=== PATIENT | male | born 1970 | race Caucasian/White ===

== ENCOUNTER 2019-05-27 07:33 | Outpatient (CLI) | payer BC, SELFPAY ==
[2019-05-27 09:11] LABS: Anion Gap 7.2 mmol/L (3-11); BUN 13 mg/dL (7-18); CO2 29.8 mmol/L (21.0-32.0); CREATININE 1.16 mg/dL (0.70-1.30); Calculated LDL 180 mg/dL; Chloride 104 mmol/L (98-107); Cholesterol 260 mg/dL (50-200); Glucose 108 mg/dL (70-100); HDL Cholesterol 35 mg/dL (40-60); Potassium 4.9 mmol/L (3.5-5.1); Sodium 141 mmol/L (136-145); Triglyceride 229 mg/dL (30-150)
== END 2019-05-27 07:53 ==
PROVIDERS: PCP Internal Medicine; Visit Provider Internal Medicine
DX: I10 Essential (primary) hypertension (principal); Z13.220 Encounter for screening for lipoid disorders
CPT/HCPCS: 36415; 80048; 80061

== ENCOUNTER 2019-11-10 07:20 | Outpatient (CLI) | payer BC, SELFPAY ==
[2019-11-10 08:21] LABS: Hemoglobin A1C 5.6 % (3.8-5.6)
[2019-11-10 08:42] LABS: Calculated LDL 159 mg/dL (<100); Cholesterol 222 mg/dL (<200); Glucose 112 mg/dL (74-106); HDL Cholesterol 48 mg/dL (40-60); Triglyceride 76 mg/dL (<150)
== END 2019-11-10 07:40 ==
PROVIDERS: PCP Internal Medicine; Visit Provider Internal Medicine
DX: E78.5 Hyperlipidemia, unspecified (principal); I10 Essential (primary) hypertension; R73.9 Hyperglycemia, unspecified
CPT/HCPCS: 36415; 80061; 82947; 83036

== ENCOUNTER 2020-05-23 04:26 | Emergency (ER) | payer BC, SELFPAY ==
[2020-05-23] VITALS (26 sets, daily range): BP systolic 114–142; BP diastolic 66–114; PULSE 77–107; RESP 13–22; TEMP 37; O2SAT 95–99
--- NOTE | 2020-05-23 04:15 | RT.EKG_ITS ---
APPROVED REPORT Exam: Resting ECG Patient Location: E HR:104 bpm ECG Measurements Heart Rate 104 AXIS MO 200 P 55 QRSd 89 QRS 52 QT 337 T 7 QTc 443 Conclusion EKG 4: 31 Sinus rhythm rate [address] elevations or depressions, intervals normal, no evidence of [facility] JENNIFER, large Q waves, or other significant abnormalities.
--- NOTE | 2020-05-23 04:30 | DI.RAD_ITS ---
EXAM: XR CHEST 2V PA LATERAL CLINICAL HISTORY: central chest pain TECHNIQUE: 2D digital imaging was performed. COMPARISON: No exams were available for comparison FINDINGS: Heart size is normal. There is mild right-sided pleural scarring. There are emphysematous changes a t the lung apices. No infiltrate, effusion or pulmonary edema is seen. IMPRESSION: Mild right pleural thickening. Apical emphysematous changes.
--- NOTE | 2020-05-23 04:42 | W.ED.GENAD ---
Discharge Plan Disposition Patient Disposition: HOME Condition: Good Discharge Details Clinical Impression: Chest pain, Muscular chest pain Primary Care Provider: Columba Moore ED Provider: Pual Anderson Home Meds and New Rx's Prescriptions: Continued amlodipine [Norvasc] 5 mg Tablet 5 mg PO DAILY RF: 0 lisinopril 40 mg Tablet 40 mg PO DAILY RF: 0 omeprazole 40 mg Capsule,Delayed Release(Dr/Ec) 40 mg PO DAILY RF: 0 Discharge Instructions Instructions: Chest Pain (ED) Additional Instructions: At this time your symptoms appear to be associated with a muscular strain, however that being said with your risk factors and your history it is important to have further testing like a stress test on an outpatient basis. Please discuss this with your family doctor this week. If you notice any worsening of your symptoms, or any new symptoms such as vomiting, diarrhea, fever, chills, shortness of breath, chest pain, numbness, weakness, or fainting , please return immediately to the emergency department for reevaluation. Please follow up with your primary care provider as soon as possible for reassessment and reevaluation. As always, it was a pleasure participating in your medical care today. Referrals: Columba Moore [Primary Care Provider] - Medical Decision Making <Sameer Rosario DO - Last Filed: 05/23/20 07:57> 50-year-old male with a past medical history of hypertension, previous obesity which she is aggressively combating with exercise and weight loss, strong family history of cardiac disease, no history of tobacco abuse, who presents today for evaluation of chest pain. Patient states that 24 hours ago at 3 AM he awoke with what he describes as chest pressure in the center of his chest like someone pushed/punched him. He denies any trauma though. Throughout the day pain was slightly worsened with activity, but was mainly improved with Advil and not rest. This evening the pain was essentially gone, however when the patient woke up again at 3 AM tonight he again had identical pain. No radiation of the pain to his arm neck or shoulders. No tearing or ripping sensation. No pleuritic chest pain. Denies PE risk factors such as recent long car rides, immobilization, recent surgery, prior history of DVT or PE, family history of PE or DVT, morbid obesity, exogenous estrogen and smoking, hemoptysis, history of cancer. He does admit to regular aggressive chest workouts, and feels that there may be a musculoskeletal component. No other complaints at this time. No other modifying factors. Exam is unremarkable. Based on the patient's risk factors, history, symptomatology will perform cardiac work-up, with the patient's mild tachycardia we will get d-dimer also. Gently rehydrate, give full dose aspirin nitroglycerin monitor closely and reassess. I did contact his and discussed all of this with her over the phone as well. 7:54 AM Chest x-ray negative, d-dimer negative, proBNP negative, no suggestion of right heart strain or CHF. Initial troponin is normal. Repeat and initial EKG are benign. Patient had no relief of his symptoms with nitroglycerin, Toradol was given an hour later and the patient had complete resolution of his symptoms. Signs and symptoms appear inconsistent with ACS and more consistent with musculoskeletal strain, intercostal pain. And costochondritis. The patient does admit to a notable heavy chest workout over the last few days. This is likely an aggravating factor. We are still pending repeat troponin at this time, but with his heart score into the 0-3 range I feel that with a negative delta troponin and his notably musculoskeletal symptoms he can be discharged with close follow-up. I did discuss with him the importance of follow-up with his PCP as well as potential stress testing on an outpatient basis. The case was signed out to my colleague Dr. Paul Anderson for follow-up on repeat troponin. I did contact the patient's and discussed this with her as well. EKG 4: 31 Sinus rhythm rate [address] elevations or depressions, intervals normal, no evidence of STEMI, large Q waves, or other significant abnormalities. Small Q wave in lead III. EKG 7: 39 Sinus rhythm, rate 81, intervals normal, no significant ST elevation or depression. No evidence of STEMI. Small Q wave in lead III. FINDINGS: Lungs: Unremarkable. No consolidation. Pleural space: Subtle blunting noted right CP angle which is nonspecific Heart/Mediastinum: Unremarkable. No cardiomegaly. Bones/joints: Unremarkable. IMPRESSION: No acute findings Thank you for allowing us to participate in the care of your patient. Dictated and Authenticated by: Chepe Nelson MD 05/23/2020 5:37 AM Eastern Time ([place] & [place]) <Paul Anderson MD - Last Filed: 05/23/20 08:23> Received signout from Dr. Rosario. Please see his note regarding details of the history, presentation, exam, plan of care. Shortly after Dr. Rosario's departure, patient's troponin resulted negative. He remained improved. He was discharged home with follow-up as previously noted. Lab Data Lab results reviewed: Yes I reviewed the patient's lab results. Labs: Laboratory Results - last 24 hr 05/23/20 05/23/20 05/23/20 04:40 04:40 04:40 WBC 9.93 RBC 4.73 Hgb 14.3 Hct 42.5 MCV 89.9 MCH 30.2 MCHC 33.6 RDW 12.6 Plt Count 235 MPV 9.5 Immature Gran % 0.1 Neutrophils % 69.3 Lymphocytes % 19.4 Monocytes % 8.3 Eosinophils % 2.4 Basophils % 0.5 Nucleated RBC % 0 Absolute Neutrophils 6.88 H Absolute Lymphocytes 1.93 Absolute Monocytes 0.82 H Absolute Eosinophils 0.24 Absolute Basophils 0.05 PT 10.3 INR 1.0 APTT 26.3 D-Dimer 271 Sodium 139 Potassium 3.9 Chloride 105 Carbon Dioxide 26.3 Anion Gap 7.7 BUN 22 H Creatinine 1.22 Estimated GFR/1.73 m2 >= 60.00 Glucose 125 H Calcium 8.7 Total Bilirubin 0.5 AST 20 ALT 42 Alkaline Phosphatase 80 Troponin I < 0.05 NT-Pro-B Natriuret Pep 57 Total Protein 7.2 Albumin 3.8 Lipase 90 05/23/20 07:40 WBC RBC Hgb Hct MCV MCH MCHC RDW Plt Count MPV Immature Gran % Neutrophils % Lymphocytes % Monocytes % Eosinophils % Basophils % Nucleated RBC % Absolute Neutrophils Absolute Lymphocytes Absolute Monocytes Absolute Eosinophils Absolute Basophils PT INR APTT D-Dimer Sodium Potassium Chloride Carbon Dioxide Anion Gap BUN Creatinine Estimated GFR/1.73 m2 Glucose Calcium Total Bilirubin AST ALT Alkaline Phosphatase Troponin I < 0.05 NT-Pro-B Natriuret Pep Total Protein Albumin Lipase HPI <Sameer Rosario DO - Last Filed: 05/23/20 07:57> General Date/Time Provider Initiated Documentation: 05/23/20 04:27. HPI Narrative: 50-year-old male with a past medical history of hypertension, previous obesity which she is aggressively combating with exercise and weight loss, strong family history of cardiac disease, no history of tobacco abuse, who presents today for evaluation of chest pain. Patient states that 24 hours ago at 3 AM he awoke with what he describes as chest pressure in the center of his chest like someone pushed/punched him. He denies any trauma though. Throughout the day pain was slightly worsened with activity, but was mainly improved with Advil and not rest. This evening the pain was essentially gone, however when the patient woke up again at 3 AM tonight he again had identical pain. No radiation of the pain to his arm neck or shoulders. No tearing or ripping sensation. No pleuritic chest pain. Denies PE risk factors such as recent long car rides, immobilization, recent surgery, prior history of DVT or PE, family history of PE or DVT, morbid obesity, exogenous estrogen and smoking, hemoptysis, history of cancer. He does admit to regular aggressive chest workouts, and feels that there may be a musculoskeletal component. No other complaints at this time. No other modifying factors. Related Data Home Medications Medication Instructions Recorded Confirmed amlodipine [Norvasc] 5 mg PO DAILY 05/23/20 05/23/20 lisinopril 40 mg PO DAILY 05/23/20 05/23/20 omeprazole 40 mg PO DAILY 05/23/20 05/23/20 Allergies Allergy/AdvReac Type Severity Reaction Status Date / Time No Known Allergies Allergy Unverified 05/23/20 05:05 Review of Systems <Sameer Rosario DO - Last Filed: 05/23/20 07:57> All systems reviewed & are unremarkable except as noted in HPI and below PFSH <Sameer Rosario DO - Last Filed: 05/23/20 07:57> Social History Smoking/Tobacco Use Status: Never Alcohol Intake: never Drug use: Never Substance use type: does not use Do you feel safe at home: Yes Do you feel safe in your relationship?: Yes Exam <Sameer Rosario DO - Last Filed: 05/23/20 07:57> Narrative Exam Narrative: 1.Const: Well-nourished, Well-developed, appearing stated age 2.Eyes: PERRL, no conjunctival injection, and symmetrical lids. 3.ENT: Atraumatic external nose and ears. Moist MM. Neck: Symmetric, trachea midline, No thyromegaly. 4.CVS: +S1/S2, No murmurs or gallops. Peripheral pulses 2+ and equal in all extremities. Brisk capillary refill in all extremities. Mild reproducibility on palpation of the lower sternum. No other abnormalities on exam 5.RESP: Unlabored respiratory effort. Clear to auscultation bilaterally. No wheezes rales or rhonchi 6.GI: Soft, Nontender/Nondistended, No hepatosplenomegaly. No guarding or rebound. 7.MSK: Normocephalic/Atraumatic, Extremities w/o deformity or ttp No cyanosis or clubbing, Normal movement of all extremities 8.Skin: Warm, Dry. No rashes or lesions. 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 Sensation grossly intact, no focal neurologic deficits. 10.Psych: (AAO) x3. Appropriate mood and affect Sign Out <Sameer Rosario DO - Last Filed: 05/23/20 07:57> Sign Out Data: Sign Out Comment: Pending repeat troponin Last updated by Sameer Rosario DO at 05/23/20 07:58
[2020-05-23 04:48] LABS: Abs Immature Grans 0.01 10^3/uL (0.0-0.06); Absolute Basophil Count 0.05 10^3/uL (0.0-0.2); Absolute Eosinophil Count 0.24 10^3/uL (0.0-0.7); Absolute Lymphocyte Count 1.93 10^3/uL (1.2-3.4); Absolute Monocyte Count 0.82 10^3/uL (0.1-0.8); Absolute Neutrophil Count 6.88 10^3/uL (1.2-6.7); Basophils % 0.5; Eosinophils % 2.4; HCT 42.5 % (40.0-50.0); HGB 14.3 g/dL (13.5-17.5); Immature Grans % 0.1; Lymphocytes % 19.4; MCH 30.2 pg (27.0-33.0); MCHC 33.6 % (32.0-36.0); MCV 89.9 fL (80-95); MPV 9.5 fL (8.0-11.0); Monocytes % 8.3; Neutrophils % 69.3; Nucleated RBC 0 %; Platelet Count 235 10^3/uL (130-400); RBC 4.73 10^6/uL (4.36-5.78); RDW 12.6 % (11.8-14.1); RDW-SD 41.7 fL; WBC 9.93 10^3/uL (4.4-10.8)
[2020-05-23] MEDS: Aspirin 81 MG CHEW 324 MG CH (04:49)
[2020-05-23] MEDS: Normal Saline 1,000 ML 1000 ML IV (04:59)
[2020-05-23] MEDS: nitroGLYcerin 0.4 MG TAB SL (04:59)
[2020-05-23 05:03] LABS: PTT Activated 26.3 sec (21.0-31.4); Prothrombin Time 10.3 sec (9.3-11.0)
[2020-05-23 05:21] LABS: D-Dimer 271 ng/mlFEU (<500)
[2020-05-23 05:22] LABS: ALT 42 U/L (16-63); AST 20 U/L (15-37); Albumin 3.8 g/dL (3.4-5.0); Alkaline Phosphatase 80 U/L (46-116); Anion Gap 7.7 mmol/L (3-11); BUN 22 mg/dL (7-18); Bilirubin, Total 0.5 mg/dL (0.2-1.0); CO2 26.3 mmol/L (21.0-32.0); CREATININE 1.22 mg/dL (0.70-1.30); Calcium 8.7 mg/dL (8.5-10.1); Chloride 105 mmol/L (98-107); Glucose 125 mg/dL (74-106); Lipase 90 U/L (73-393); NT-proBNP 57 pg/mL (<300); Potassium 3.9 mmol/L (3.5-5.1); Sodium 139 mmol/L (136-145); Total Protein 7.2 g/dL (6.4-8.2); Troponin I < 0.05 ng/mL (<0.06)
--- NOTE | 2020-05-23 05:37 | DI.VRAD_ITS ---
PROCEDURE INFORMATION: Exam: XR Chest, 2 Views Exam date and time: 05/23/2020 4:39 AM Age: 50 years old Clinical indication: Patient HX: Central chest pain TECHNIQUE: Imaging protocol: XR of the chest Views: 2 views. COMPARISON: No relevant prior studies available. FINDINGS: Lungs: Unremarkable. No consolidation. Pleural space: Subtle blunting noted right CP angle which is nonspecific Heart/Mediastinum: Unremarkable. No cardiomegaly. Bones/joints: Unremarkable. IMPRESSION: No acute findings Dictated and Authenticated by: Chepe Nelson MD. Ordering:JOSE L Estrella MD
[2020-05-23] MEDS: Ketorolac 30 MG/ML VIAL IVP (06:00)
--- NOTE | 2020-05-23 06:24 | NUR.NOTE ---
Nursing Note: Patient aware of POC, will recheck Troponin at 0740
--- NOTE | 2020-05-23 07:00 | RT.EKG_ITS ---
APPROVED REPORT Exam: Resting ECG Patient Location: E HR:81 bpm ECG Measurements Heart Rate 81 AXIS DC 174 P 45 QRSd 85 QRS 40 QT 356 T 24 QTc 415 Conclusion EKG 7: 39 Sinus rhythm, rate 81, intervals normal, no significant ST elevation or depression. No evidence of S CHILO. Small Q wave in lead III.
[2020-05-23 08:06] LABS: Troponin I < 0.05 ng/mL (<0.06)
== END 2020-05-23 08:33 | disposition home or self-care (01) ==
PROVIDERS: Student in an Organized Health Care Education/Training Program; Emergency Provider Emergency Medicine; PCP Internal Medicine
DX: R07.81 Pleurodynia (principal); S29.011A Strain of muscle and tendon of front wall of thorax, initial encounter; I10 Essential (primary) hypertension
CPT/HCPCS: 36415; 80053; 83690; 93005; 96361; 96374; 99285; 71046; 83880; 84484; 85025; 85379; 85610; 85730; 93010; 99284; J1885

== ENCOUNTER 2020-10-01 14:58 | Emergency (ER) | payer BC, SELFPAY ==
[2020-10-01 15:02] VITALS: BP 168/87; PULSE 90; RESP 18; TEMP 36.7; O2SAT 99
--- NOTE | 2020-10-01 15:15 | DI.CT_ITS ---
EXAM: CT ABDOMEN PELVIS W CLINICAL HISTORY: abdominal pain, rectal bleeding TECHNIQUE: Imaging Protocol: Axial computed tomography images with coronal and sagittal reformatted images were created and reviewed CONTRAST MATERIAL: Intravenous: Omnipaque 350 Contrast volume:99 mL Oral: No COMPARISON: CR,XR XR CHEST 2V PA LATERAL from 05/23/2020 FINDINGS: ABDOMEN: Lung Bases: There is a small right pleural effusion. This is apparent on this chest x-ray from 2020. Atelectasis is seen in the lung bases. There is a small no hernia. Liver: Normal density. No measurable mass. Portal, Superior Mesenteric, and Splenic Veins: Unremarkable. Gallbladder and Biliary Tract: No radiodense calculus or dilation. Pancreas: Normal density, no abnormal calcifications or inflammatory process. Spleen: Normal. Adrenals: No masses seen. Kidneys: Normal size, contour and axis. No radiodense stones or obstructive uropathy. No masses seen. Abdominal Aorta: Abdominal portion non-dilated. Mild atherosclerosis. Bowel: No evidence of obstruction. There is diffuse bowel wall thickening seen in the distal transve rse colon and descending colon. Pericolonic inflammatory changes are seen. Findings are suspicious for an infectious or inflammatory colitis. No evidence of diverticulosis is seen. Appendix is unrem arkable. No abscess or free air. Peritoneal Cavity: No ascites, collection or mesenteric inflammatory response. No free air. Lymph Nodes: Within normal limits. Bones: Within normal limits for the patient's age. Soft Tissues: Bilateral fat containing umbilical hernia. PELVIS: Bladder: Symmetric distention, no gross wall thickening. Reproductive Organs: Unremarkable as visualized. Lymph Nodes: Within normal limits. Bones: Within normal limits for the patient's age. IMPRESSION: Descending colitis. Findings are suspicious for an infectious/inflammatory etiology. No abscess or free air. Findings were discussed with the emergency department on the date of the examination. RADIATION DOSE DELIVERED: 969.24mGy.cm Total DLP DATA REPOSITORY: All CT scans at this facility are submitted to the National Radiology Data Registry (NRDR) Dose Index Registry (DIR) with the [employer] (A[employer]). RADIATION OPTIMIZATION: All CT scans at this facility use at least one of these dose optimization te chniques: automated exposure control; mA and/or kV adjustment per patient size (includes targeted exa ms where dose is matched to clinical indication); or iterative reconstruction.
--- NOTE | 2020-10-01 15:17 | ED.GENADUL_ITS ---
Discharge Plan Disposition Patient Disposition: HOME Condition: Stable Discharge Details Clinical Impression: Colitis Primary Care Provider: Columba Moore ED Provider: Venkata Chandra Home Meds and New Rx's Prescriptions: New amoxicillin-pot clavulanate [Augmentin] 875-125 mg tablet 1 tab PO BID Qty: 14 RF: 0 Continued amlodipine [Norvasc] 5 mg Tablet 5 mg PO DAILY RF: 0 lisinopril 40 mg Tablet 40 mg PO DAILY RF: 0 omeprazole 40 mg Capsule,Delayed Release(Dr/Ec) 40 mg PO DAILY RF: 0 Discharge Instructions Instructions: Colitis (ED) Additional Instructions: your cat scan showed you have colitis if you have severe worsening pain, feel short of breath or chest pain return to the emergency department follow up with your primary care provider within a week Medical Decision Making 50 yo male with hx of htn, who comes in with complaint of blood in stools an hour ago. He states he has had some lower abdominal cramping for a day left worse than the right, no vomit or fevers. Had a BM an hour ago that had blood in it which has never happened to him before. Has not had his colonoscopy yet. He arrives in no distress with mild llq tenderness no guarding or rebound. HAs a small nonbleeding hemorrhoid about 0.5cm external to the rectum at the 3 oclock position and no active bleeding on rectal exam or other masses. Will order cbc, and evaluate for possible colitis vs diverticulitis with ct. pt stable and has no bleeding here only mild lower abdominal tenderness no guarding or rebound. Labs unremarkable, ct shows colitis, no free air or abscess. Will start on augmentin and have him f/u with pcp and discuss colonoscopy with them, return precautions given Differential Diagnosis Differential Diagnosis: diverticulitis, hemorrhoid, colitis Imaging Data Radiologic Study: Attestation: I personally reviewed and interpreted this imaging study as follows: Imaging: CT Scan Radiologist's impression: IMPRESSION: Descending colitis. Findings are suspicious for an infectious/inflammatory etiology. No abscess or free air. Lab Data Lab results reviewed: Yes I reviewed the patient's lab results. HPI General Mode of arrival: ambulatory . Date/Time Provider Initiated Documentation: 10/01/20 15:00 . Limitations to Documentation: no limitations . Information obtained by: patient . History of Present Illness 50 year old M presents to the emergency department with the chief complaint of blood in stool, Patient started experiencing this hour(s) (1) and it has been intermittent. No relieving factors improve symptom(s), No exacerbating factors reported . Patient notes no other symptoms.. Patient did receive the following treatments prior to arrival, none Related Data Home Medications Medication Instructions Recorded Confirmed amlodipine [Norvasc] 5 mg PO DAILY 05/23/20 10/01/20 lisinopril 40 mg PO DAILY 05/23/20 10/01/20 omeprazole 40 mg PO DAILY 05/23/20 10/01/20 amoxicillin-pot clavulanate 1 tab PO BID #14 tab 10/01/20 [Augmentin] Previous Rx's Medication Instructions Recorded amoxicillin-pot clavulanate 1 tab PO BID #14 tab 10/01/20 [Augmentin] Allergies Allergy/AdvReac Type Severity Reaction Status Date / Time No Known Allergies Allergy Unverified 10/01/20 15:07 General Stated Complaint: Abd Prob JOHNNY: 3 Review of Systems All systems reviewed & are unremarkable except as noted in HPI and below Constitutional Constitutional: Denies chills, Denies fever(s) and Denies weakness Cardiovascular Cardiovascular: Denies chest pain and Denies dyspnea Respiratory Respiratory: Denies cough and Denies dyspnea Gastrointestinal Gastrointestinal: Denies nausea and Denies vomiting Musculoskeletal Musculoskeletal: Denies joint swelling Neurologic Neurologic: Denies weakness Psychiatric Psychiatric: Denies depression [facility] Social History Smoking/Tobacco Use Status: Never Smoking risk assessment performed?: Yes Alcohol Intake: never Drug use: Never Substance use type: does not use Do you feel safe at home: Yes Do you feel safe in your relationship?: Yes Exam Const General: no acute distress Orientation: alert HENMT Head: normal to inspection Ears: external ears normal General nose exam: external nose normal Mouth: moist mucous membranes Eyes General: appearance normal, both eyes and all related structures Neck Neck: normal visual inspection Resp Effort & Inspection: normal respiratory effort and able to speak in complete sentences Cardio Rate: regular rate GI Palpation: soft Skin General skin exam: no rashes or lesions noted Neuro General: patient alert and patient oriented x3 Extrem General: normal to inspection Psych Mental Status: mental status grossly normal Course Vital Signs Vital signs: Vital Signs Temperature 36.7 C 10/01/20 15:02 Pulse 90 10/01/20 15:02 Respiratory Rate 18 10/01/20 15:02 Blood Pressure 168/87 H 10/01/20 15:02 Pulse Oximetry 99 10/01/20 15:02 Temperature 36.7 C 10/01/20 15:02 Temperature Source Temporal Artery Scan 10/01/20 15:02 Pulse 90 10/01/20 15:02 Respiratory Rate 18 10/01/20 15:02 Respiratory Effort Non-Labored 10/01/20 15:08 Blood Pressure 168/87 H 10/01/20 15:02 Blood Pressure Position Supine 10/01/20 15:02 Pulse Oximetry 99 10/01/20 15:02 Oxygen Delivery Method Room Air 10/01/20 15:02 Oxygen Flow Rate 0 10/01/20 15:02 Pain Level 2 10/01/20 15:02
[2020-10-01 15:37] LABS: Abs Immature Grans 0.02 10^3/uL (0.0-0.06); Absolute Basophil Count 0.04 10^3/uL (0.0-0.2); Absolute Eosinophil Count 0.16 10^3/uL (0.0-0.7); Absolute Lymphocyte Count 2.16 10^3/uL (1.2-3.4); Absolute Monocyte Count 0.57 10^3/uL (0.1-0.8); Absolute Neutrophil Count 6.52 10^3/uL (1.2-6.7); Basophils % 0.4; Eosinophils % 1.7; HCT 43.2 % (40.0-50.0); HGB 14.5 g/dL (13.5-17.5); Immature Grans % 0.2; Lymphocytes % 22.8; MCH 29.7 pg (27.0-33.0); MCHC 33.6 % (32.0-36.0); MCV 88.5 fL (80-95); MPV 9.6 fL (8.0-11.0); Neutrophils % 68.9; Nucleated RBC 0 %; Platelet Count 254 10^3/uL (130-400); RBC 4.88 10^6/uL (4.36-5.78); RDW 12.6 % (11.8-14.1); RDW-SD 41.2 fL; WBC 9.47 10^3/uL (4.4-10.8)
[2020-10-01] MEDS: Normal Saline - Diluent 50 ML VIAL IV (15:38)
[2020-10-01] MEDS: Omnipaque 350 MG/ML 100 ML BTL IJ (15:38)
[2020-10-01] MEDS: Normal Saline Flush 10 ML SYR IVP (15:38)
[2020-10-01 15:53] LABS: INR 1.1 (0.9-1.1); Prothrombin Time 10.8 sec (9.3-11.0)
[2020-10-01 16:04] LABS: ALT 43 U/L (16-63); AST 20 U/L (15-37); Alkaline Phosphatase 77 U/L (46-116); Anion Gap 9.7 mmol/L (3-11); BUN 16 mg/dL (7-18); Bilirubin, Direct 0.07 mg/dL (0.00-0.20); Bilirubin, Total 0.5 mg/dL (0.2-1.0); CO2 27.3 mmol/L (21.0-32.0); CREATININE 1.1 mg/dL (0.70-1.30); Calcium 8.2 mg/dL (8.5-10.1); Chloride 104 mmol/L (98-107); Glucose 123 mg/dL (74-106); Lipase 130 U/L (73-393); Potassium 3.5 mmol/L (3.5-5.1); Sodium 141 mmol/L (136-145); Total Protein 7.5 g/dL (6.4-8.2)
[2020-10-01 16:17] VITALS: BP 142/87; PULSE 79; O2SAT 100
== END 2020-10-01 16:45 | disposition home or self-care (01) ==
PROVIDERS: Emergency Provider Emergency Medicine; PCP Internal Medicine
DX: K52.89 Other specified noninfective gastroenteritis and colitis (principal); R10.32 Left lower quadrant pain
CPT/HCPCS: 36415; 80053; 83690; 86850; 86900; 86901; 99285; 74177; 82248; 85025; 85610; 85730; 99284; J3490

== ENCOUNTER 2020-11-03 09:10 | Outpatient (REF) | payer BC, SELFPAY ==
[2020-11-03 13:12] LABS: Hemoglobin A1C 5.4 % (<5.7)
[2020-11-03 13:20] LABS: Anion Gap 7.4 mmol/L (3-11); BUN 28 mg/dL (7-18); CO2 28.6 mmol/L (21.0-32.0); CREATININE 1.1 mg/dL (0.70-1.30); Calcium 9.2 mg/dL (8.5-10.1); Calculated LDL 184 mg/dL (<100); Chloride 102 mmol/L (98-107); Cholesterol 255 mg/dL (<200); Glucose 102 mg/dL (74-106); HDL Cholesterol 58 mg/dL (40-60); Potassium 4.5 mmol/L (3.5-5.1); Sodium 138 mmol/L (136-145); Triglyceride 69 mg/dL (<150)
== END 2020-11-03 09:11 | disposition home or self-care (01) ==
LOC: NCHCN 09:10
PROVIDERS: PCP Internal Medicine; Visit Provider Internal Medicine
DX: R73.03 Prediabetes (principal); I10 Essential (primary) hypertension; E78.5 Hyperlipidemia, unspecified
CPT/HCPCS: 80048; 80061; 83036

== ENCOUNTER 2021-12-07 08:04 | Outpatient (REF) | payer BC, SELFPAY ==
[2021-12-07 17:16] LABS: Hemoglobin A1C 5.6 % (<5.7)
[2021-12-07 17:22] LABS: ALT 33 U/L (16-63); AST 18 U/L (15-37); Albumin 3.8 g/dL (3.4-5.0); Alkaline Phosphatase 80 U/L (46-116); Anion Gap 6.6 mmol/L (3-11); BUN 24 mg/dL (7-18); Bilirubin, Total 0.3 mg/dL (0.2-1.0); CO2 29.4 mmol/L (21.0-32.0); CREATININE 1.1 mg/dL (0.70-1.30); Calcium 8.4 mg/dL (8.5-10.1); Calculated LDL 161 mg/dL (<100); Chloride 106 mmol/L (98-107); Cholesterol 230 mg/dL (<200); Glucose 109 mg/dL (74-106); HDL Cholesterol 60 mg/dL (40-60); Potassium 3.9 mmol/L (3.5-5.1); Sodium 142 mmol/L (136-145); Total Protein 6.7 g/dL (6.4-8.2); Triglyceride 49 mg/dL (<150)
== END 2021-12-07 08:05 | disposition home or self-care (01) ==
LOC: NCHCN 08:04
PROVIDERS: PCP Internal Medicine; Visit Provider Internal Medicine
DX: Z00.00 Encounter for general adult medical examination without abnormal findings (principal); E78.5 Hyperlipidemia, unspecified; R73.03 Prediabetes; I10 Essential (primary) hypertension
CPT/HCPCS: 80053; 80061; 83036

== ENCOUNTER 2022-05-22 15:08 | Outpatient (REF) | payer BC, SELFPAY ==
[2022-05-24 12:07] LABS: COVID-19 RT-PCR UVMMC Result Negative (Negative)
== END 2022-05-22 15:09 | disposition home or self-care (01) ==
LOC: LBN 15:08
PROVIDERS: PCP Internal Medicine; Visit Provider Nurse Practitioner Family
DX: Z20.822 Contact with and (suspected) exposure to COVID-19 (principal); J06.9 Acute upper respiratory infection, unspecified
CPT/HCPCS: U0003

== ENCOUNTER 2023-06-08 18:45 | Outpatient (REF) | payer BC, SELFPAY ==
[2023-06-08 15:31] LABS: Hemoglobin A1C 5.6 % (<5.7)
[2023-06-08 16:09] LABS: Anion Gap 8.9 mmol/L (3-11); BUN 29 mg/dL (7-18); CO2 25.1 mmol/L (21.0-32.0); CREATININE 1.1 mg/dL (0.70-1.30); Calcium 9.1 mg/dL (8.5-10.1); Calculated LDL 150 mg/dL (<100); Chloride 104 mmol/L (98-107); Cholesterol 215 mg/dL (<200); Estimated GFR 80.27 (mL/min/1.73m2); Glucose 129 mg/dL (74-106); HDL Cholesterol 53 mg/dL (40-60); Potassium 3.9 mmol/L (3.5-5.1); Sodium 138 mmol/L (136-145); Triglyceride 64 mg/dL (<150)
== END 2023-06-08 18:46 | disposition home or self-care (01) ==
LOC: NCHCN 18:45
PROVIDERS: PCP Internal Medicine; Visit Provider Internal Medicine
DX: I10 Essential (primary) hypertension (principal); E78.5 Hyperlipidemia, unspecified; R73.03 Prediabetes
CPT/HCPCS: 80048; 80061; 83036

== ENCOUNTER 2023-06-25 15:54 | Outpatient (REF) | payer BC, SELFPAY ==
[2023-06-25 16:58] LABS: TSH 0.73 uIU/mL (0.36-3.74)
[2023-07-06 12:32] LABS: Testosterone, Total 289 ng/dL (240-950)
== END 2023-06-25 15:55 | disposition home or self-care (01) ==
LOC: NCHCN 15:54
PROVIDERS: PCP Internal Medicine; Visit Provider Internal Medicine
DX: R68.82 Decreased libido (principal); N52.9 Male erectile dysfunction, unspecified; Z86.39 Personal history of other endocrine, nutritional and metabolic disease
CPT/HCPCS: 84403; 84443

== ENCOUNTER 2024-06-16 18:16 | Outpatient (REF) | payer BC, SELFPAY ==
[2024-06-16 16:53] LABS: Hemoglobin A1C 5.5 % (<5.7)
[2024-06-16 17:57] LABS: Anion Gap 8.9 mmol/L (3-11); BUN 22 mg/dL (7-18); CO2 29.1 mmol/L (21.0-32.0); CREATININE 1.1 mg/dL (0.70-1.30); Calcium 9.1 mg/dL (8.5-10.1); Calculated LDL 148 mg/dL (<100); Chloride 106 mmol/L (98-107); Cholesterol 217 mg/dL (<200); Estimated GFR 79.77 (mL/min/1.73m2); Glucose 119 mg/dL (74-106); HDL Cholesterol 50 mg/dL (40-60); Potassium 4.2 mmol/L (3.5-5.1); Sodium 144 mmol/L (136-145); Triglyceride 97 mg/dL (<150)
--- OUTSIDE RECORDS SUMMARY | 2024-06-16 18:18 | XMS_ITS | Encounter Summary ---
Author Organization [facility] Address [address] [place] [id number] Care Team Providers Care Talent Acquisition Lead Name Role Phone Unknown, Provider Primary Care Provider [phone] Marco Antonio Baez MD Primary Care Provider [phone] Encounter Details Date Type Department Care Team (Late st Contact Info) Description 02/27/[address] [facility] - Main [address] [address] Vlad oHrne MD [address] [place] [id number] Social History Tobacco Use Types Packs/Day Years Used Date Smoking Tobacco: Never Assessed Sex and Gender Information Value Date Recorded Sex Assigned at Not on file Gender Identity Not on file Sexual Orientation Not on file documented as of this encounter Plan of Treatment Not on file documented as of this encounter Procedures Procedure Name Priority Date/Time Associated Diagnosis Comments SPEC W/O ORDERS - [facility] [place] Routine 02/27/2018 20:28 EDT documented in this encounter Results * SPEC W/O ORDERS - [facility] [place] (02/27/2018 20:28 EDT) SPEC W/O [facility] SEE NOTE 02/27/2018 20:49 EDT [facility] Comment: ?Emergency Room Specimen(s) without Orders These specimens will be discarded in 8 hours: RAINBOW 02/27/2018 20:2 8 EDT 02/27/2018 20:48 EDT Vlad Horne MD CHEMISTRY & BLOOD GAS ORDERABLES Performing Organization Address City/State/ZIP Co sc Phone Number [facility] documented in this encounter Visit Diagnoses Not on filedocumented in this encounter Care Teams Talent Acquisition Lead Relationship Specialty Start Date End Date Unknown, Provider, PCP - General 02/27/18 04/20/18 Marco Antonio Baez MD [address] [place] [id number] PCP - General 04/21/18 documented as of this encounter
--- OUTSIDE RECORDS SUMMARY | 2024-06-16 18:18 | XMS_ITS | Encounter Summary ---
Author Organization [facility] Address [address] [place] [id number] Care Team Providers Care Business Loan Processor Name Role Phone Unknown, Provider Primary Care Provider Encounter Details Date Type Department Care Team (Latest Contact Info) Description 04/17/2018 9:41 EDT - 04/17/2018 23:59 EDT Hospital Encounter [address] [address] Unknown, ProviderMD Discharge Disposition: Home or Self Care Social History Tobacco Use Types Packs/Day Years Used Date Smoking Tobacco: Never Assessed Sex and Gender Information Value Date Recorded Sex Assigned at Not on file Gender Identity Not on file Sexual Orientation Not on file documented as of this encounter Discharge Disposition Disposition Code Departure Means Destination Home or Self Senior Living documented in this encounter Plan of Treatment Not on file documented as of this encounter Visit Diagnoses Not on filedocumented in this encounter Care Teams Business Loan Processor Relationship Specialty Start Date End Date Unknown, Provider, PCP - General 02/27/18 04/20/18 documented as of this encounter
--- OUTSIDE RECORDS SUMMARY | 2024-06-16 18:18 | XMS_ITS | Referral Summary ---
Author Organization [facility] Address [address] [place] [address] Care Team Providers Care Chip Separator Name Role Phone Marco Antonio Baez MD Primary Care Provider [phone] Social History Tobacco Use Types Packs/Day Years Used Date Smoking Tobacco: Never Assessed Interpersonal Safety Answer Date Record ed Physically Hurt Never 03/29/2020 Verbally Threaten Not on file 03/29/2020 Sex and Gender Information Value Date Recorded Sex Assigned at Not on file Gender Identity Not on file Sexual Orientation Not on file Plan of Treatment Not on file Care Teams Chip Separator Relationship Specialty Start Date End Date Marco Antonio Baez MD [address] [place] [address] [address] [place] [phone] PCP - General 04/21/18
--- OUTSIDE RECORDS SUMMARY | 2024-06-16 18:18 | XMS_ITS | Encounter Summary ---
Author Organization [facility] Address [address] [place] [address] Care Team Providers Care Machine Boss Name Role Phone Unknown, Provider Primary Care Provider Encounter Details Date Type Department Care Team (Late st Contact Info) Description 04/17/2018 Results Only [facility] [phone] Petr Crystal MD [address] [place] [address] [address] [place] [id number] Social History Tobacco Use Types Packs/Day Years Used Date Smoking Tobacco: Never Assessed Sex and Gender Information Value Date Recorded Sex Assigned at Not on file Gender Identity Not on file Sexual Orientation Not on file documented as of this encounter Plan of Treatment Not on file documented as of this encounter Procedures Procedure Name Priority Date/Time Associated Diagnosis Comments CYTOPATHOLOGY Routine 04/17/2018 0:00 EDT documented in this encounter Results * CYTOPATHOLOGY (04/17/2018 0:00 EDT) Pathology Report: CYTOPATHOLOGY REPORT Reports generated via electronic interface contain original data; however they are lacking the format of the original report. Caution should be taken when reading/interpretin g unformatted reports. Name: ? VENKATA LEUNG ? Accession #: ? [id number] : ? 1970 (Age: 48) ??M ?Collect Date: ? 04/17/2018 Location: ? [facility] ? Receive Date: ? 04/18/2018 Provider: ? PETR CRYSTAL MD Copy to: ? CYTOLOGIC DIAGNOSIS: ESOPHAGEAL BRUSH, CYTOLOGIC EVALUATION: - ??No malignant cells identified. - ??Mature squamous cells with reactive changes and sheets of benign glandular cells present. See comment. ? COMMENT: The presence of glandular epithelial cells in this cytology specimen may represent intestinal metaplasia or sampling from the gastroesophageal junction. Recommend correlation with clinical findings as indicated. Dr. Cruz 04/19/2018 10:20 AM Document reviewed and electronically signed by: ? SOMMER CRUZ MD Report Date: ??04/19/2018 17:45 By the signature above, the attending physician certifies that he/she has personally conducted a gross and/or microscopic examination of the described specimens and rendered or confirmed the above diagnosis. Specimen Type: ? Esophageal Wilmar Clinical History: ? Not listed ? Gross Description: ? 1 tube of Cytolyt, containing brush collection device, was received and processed by selective cellular enhancement technique. ? End of Report [facility] 04/17/2018 04/18/2018 9:0 5 EDT Petr Crystal MD PATHOLOGY ORDERABL ES [facility] [address] [place] [address] documented in this encounter Visit Diagnoses Not on filedocumented in this encounter Care Teams Machine Boss Relationship Specialty Start Date End Date Unknown, Provider, PCP - General 02/27/18 04/20/18 documented as of this encounter
--- OUTSIDE RECORDS SUMMARY | 2024-06-16 18:18 | XMS_ITS | Clinical Summary ---
Author Organization [facility] Address [address] [place] [address] Care Team Providers Care Resort Desk Clerk Name Role Phone Marco Antonio Baez MD Primary Care Provider +1- [phone] Social History Tobacco Use Types Packs/Day Years Used Date Smoking Tobacco: Never Assessed Interpersonal Safety Answer Date Record ed Physically Hurt Never 03/29/2020 Verbally Threaten Not on file 03/29/2020 Sex and Gender Information Value Date Recorded Sex Assigned at Not on file Gender Identity Not on file Sexual Orientation Not on file Plan of Treatment Health Maintenance Due Date Last Done Comments Hepatitis C Screen 1970 Hepatitis B Vaccine (1 of 3 - 19+ 3-dose series) 03/26 COVID-19 Vaccine (2022-24 season) 2023 Care Teams Resort Desk Clerk Relationship Specialty Start Date End Date Marco Antonio Baez MD [address] [facility] [address] [place] [address] PCP - General 04/21/18
--- OUTSIDE RECORDS SUMMARY | 2024-06-16 18:18 | XMS_ITS | Encounter Summary ---
Author Organization [facility] Address [address] [place] [address] Care Team Providers Care Commercial Banker Name Role Phone Marco Antonio Baez MD Primary Care Provider +1- [phone] Encounter Details Date Type Department Care Team (Late st Contact Info) Description 05/22/2022 Lab Requisition [facility] Pathology & Laboratory Medicine - [address] [address] Outr Resulting Lab, Provider Social History Tobacco Use Types Packs/Day Years [...] Procedure Name Priority Date/Time Associated Diagnosis Comments ZZCOVID-19 TEST [facility] PCR Today 05/22/2022 11:05 EDT COVID-19 TESTING Routine 05/22/2022 11:0 5 EDT documented in this encounter Results * COVID-19 TEST [facility] PCR (05/22/2022 11:05 EDT) Swab 05/22/2022 11:0 5 EDT 05/23/2022 17:09 EDT Provider Outr Resulting Lab MICROBIOLOGY - GENERAL ORDERABLES [facility] [address] [place] [address] * COVID-19 TESTING (05/22/2022 11:05 EDT) COVID-19 rt-PCR Result Negative Negative 05/24/2022 12:02 EDT [facility] Comment: This test has not been FDA cleared or approved. This test has been authorized by FDA under an EUA for use by authorized laboratories. This test has been authorized only for detection of nucleic acid from 2019-nCoV, not for any other viruses or pathogens. This test is only authorized for the duration of the declaration that circumstances exist justifying the authorization of emergency use of in vitro diagnostic tests for detection and/or diagnosis of 2019-nCoV under section 564(b)(1) of Act, 21 U.S.C ?? 360bbb-3(b) (1), unless the authorization is terminated or revoked sooner. Negative results do not preclude 2019-nCoV infection and should not be used as the sole basis for treatment or other patient management decisions. Negative results must be combined with clinical observations, patient history, and epidemiological information. Testing was performed using the stacey SARS-CoV-2 assay ([employer] on the Stacey 6800 System Performing Lab Stacey [address] [facility] 05/24/2022 12:02 EDT [facility] Swab 05/22/2022 11:0 5 EDT 05/23/2022 17:09 EDT Provider Outr Resulting Lab MICROBIOLOGY - GENERAL ORDERABLES [facility] [address] [place] [address] documented in this encounter Visit Diagnoses Not on filedocumented in this encounter Care Teams Commercial Banker Relationship Specialty Start Date End Date Marco Antonio Baez MD [address] [facility] [address] [place] [address] PCP - General 04/21/18 documented as of this encounter
== END 2024-06-16 18:17 | disposition home or self-care (01) ==
LOC: NCHCN 18:16
PROVIDERS: PCP Internal Medicine; Visit Provider Internal Medicine
DX: E78.5 Hyperlipidemia, unspecified (principal); R73.03 Prediabetes; I10 Essential (primary) hypertension
CPT/HCPCS: 80048; 80061; 83036

== ENCOUNTER 2024-07-03 07:57 | Outpatient (REF) | payer BC, SELFPAY ==
--- OUTSIDE RECORDS SUMMARY | 2024-07-03 07:59 | XMS_ITS | Encounter Summary ---
Author Organization [facility] Address [address] [place] [address] Care Team Providers Care Entomology Teacher Name Role Phone Unknown, Provider Primary Care Provider Unava ilable Encounter Details Date Type Department Care Team (Late st Contact Info) Description 04/17/2018 Results Only [facility] [phone] Petr Crystal MD [address] [place] [address] [address] [place] [address] Social History Tobacco Use Types Packs/Day Years [...] ? VENKATA LEUNG ? Accession #: ? [id number] : ? 1970 (Age: 48) ??M ?Collect [...] the above diagnosis. Specimen Type: ? Esophageal Ewing Clinical History: ? Not listed ? Gross Description: ? 1 tube of Cytolyt, containing brush collection device, was received and processed by selective cellular enhancement technique. ? End of Report [facility] 04/17/2018 04/18/2018 9:0 5 EDT Petr Crystal MD PATHOLOGY ORDERABL ES [facility] [address] [place] [address] documented in this encounter Visit Diagnoses Not on filedocumented in this encounter Care Teams Entomology Teacher Relationship Specialty Start Date End Date Unknown, Provider, PCP - General 02/27/18 04/20/18 documented as of this encounter
--- OUTSIDE RECORDS SUMMARY | 2024-07-03 07:59 | XMS_ITS | Referral Summary ---
Author Organization [facility] Address [address] [place] [address] Care Team Providers Care Coffee Host Name Role Phone Marco Antonio Baez MD Primary Care Provider +1- [phone] Social History Tobacco Use Types Packs/Day Years Used Date Smoking Tobacco: Never Assessed Interpersonal Safety Answer Date Record ed Physically Hurt Never 03/29/2020 Verbally Threaten Not on file 03/29/2020 Sex and Gender Information Value Date Recorded Sex Assigned at Not on file Gender Identity Not on file Sexual Orientation Not on file Plan of Treatment Not on file Care Teams Coffee Host Relationship Specialty Start Date End Date Marco Antonio Baez MD [address] [place] [address] [address] [place] [address] PCP - General 04/21/18
--- OUTSIDE RECORDS SUMMARY | 2024-07-03 07:59 | XMS_ITS | Encounter Summary ---
Author Organization [facility] Address [address] [place] [address] Care Team Providers Care Frame Stripper And Crusher Name Role Phone Marco Antonio Baez MD Primary Care Provider +1- [phone] Encounter Details Date Type Department Care Team (Late st Contact Info) Description 05/22/2022 Lab Requisition [facility] Pathology & Laboratory Medicine - [address] [address] Outr Resulting Lab, Provider Social History Tobacco [...] Outr Resulting Lab MICROBIOLOGY - GENERAL ORDERABLES [facility] [address] [place] [address] * COVID-19 TESTING (05/22/2022 11:05 EDT) COVID-19 rt-PCR Result Negative Negative 05/24/2022 12:02 EDT [facility] Comment: This test has not [...] was performed using the stacey SARS-CoV-2 assay ([employer] on the Stacey 6800 System Performing Lab Stacey [address] [facility] Lab 05/24/2022 12:02 EDT [facility] Swab 05/22/2022 11:0 5 EDT 05/23/2022 17:09 EDT Provider Outr Resulting Lab MICROBIOLOGY - GENERAL ORDERABLES [facility] [address] [place] [address] documented in this encounter Visit Diagnoses Not on filedocumented in this encounter Care Teams Frame Stripper And Crusher Relationship Specialty Start Date End Date Marco Antonio Baez MD [address] [facility] [address] [place] [address] PCP - General 04/21/18 documented as of this encounter
--- OUTSIDE RECORDS SUMMARY | 2024-07-03 07:59 | XMS_ITS | Encounter Summary ---
Author Organization [facility] Address [address] [place] [address] Care Team Providers Care Electrical Equipment Technician Name Role Phone Unknown, Provider Primary Care Provider Marco Antonio Rodgers MD Primary Care Provider +1- [phone] Encounter Details Date Type Department Care Team (Late st Contact Info) Description 02/27/2018 Historical Results Only [facility] Lab - Main [address] [id number] Vlad Horne MD [address] [place] [phone] Social History Tobacco Use Types Packs/Day [...] Date/Time Associated Diagnosis Comments SPEC W/O ORDERS [facility] Routine 02/27/2018 20:28 EDT documented in this encounter Results * SPEC W/O ORDERS - [facility] (02/27/2018 20:28 EDT) SPEC W/O [facility] SEE NOTE 02/27/2018 20:49 EDT [facility] Comment: ?Emergency Room Specimen(s) without Orders These specimens will be discarded in 8 hours: RAINBOW 02/27/2018 20:2 8 EDT 02/27/2018 20:48 EDT Vlad Horne MD CHEMISTRY & BLOOD GAS ORDERABLES [facility] documented in this encounter Visit Diagnoses Not on filedocumented in this encounter Care Teams Electrical Equipment Technician Relationship Specialty Start Date End Date Unknown, Provider, PCP - General 02/27/18 04/20/18 Marco Antonio Baez MD [address] [facility] [address] [place] [address] PCP - General 04/21/18 documented as of this encounter
--- OUTSIDE RECORDS SUMMARY | 2024-07-03 07:59 | XMS_ITS | Clinical Summary ---
Author Organization [facility] Address [address] [place] [address] Care Team Providers Care Field Specialist Name Role Phone Marco Antonio Baez MD Primary Care Provider +1- [phone] Social History Tobacco Use Types Packs/Day Years [...] COVID-19 Vaccine (2022-24 season) 2023 Care Teams Field Specialist Relationship Specialty Start Date End Date Marco Antonio Baez MD [address] [facility] [address] [place] [address] PCP - General 04/21/18
--- OUTSIDE RECORDS SUMMARY | 2024-07-03 07:59 | XMS_ITS | Encounter Summary ---
Author Organization [facility] Address [address] [place] [address] Care Team Providers Care Sports Commentator Name Role Phone Unknown, Provider Primary Care Provider Unava ilable Encounter Details Date Type Department Care Team (Latest Contact Info) Description 04/17/2018 9:41 EDT - 04/17/2018 23:59 EDT Hospital Encounter [address] [address] Unknown, ProviderMD Discharge Disposition: Home or Self Care Social History Tobacco Use Types Packs/Day Years Used Date Smoking Tobacco: Never Assessed Sex and Gender Information Value Date Recorded Sex Assigned at Not on file Gender Identity Not on file Sexual Orientation Not on file documented as of this encounter Discharge Disposition Disposition Code Departure Means Destination Home or Self Correction documented in this encounter Plan of Treatment Not on file documented as of this encounter Visit Diagnoses Not on filedocumented in this encounter Care Teams Sports Commentator Relationship Specialty Start Date End Date Unknown, ProviderMD PCP - General 02/27/18 04/20/18 documented as of this encounter
[2024-07-06 18:11] LABS: Testosterone, Total 306 ng/dL (240-950)
== END 2024-07-03 07:58 | disposition home or self-care (01) ==
LOC: NCHCN 07:57
PROVIDERS: PCP Internal Medicine; Visit Provider Internal Medicine
DX: F52.21 Male erectile disorder (principal)
CPT/HCPCS: 84403

== ENCOUNTER 2024-12-31 17:24 | Emergency (ER) | payer BC, SELFPAY ==
[2024-12-31] VITALS (26 sets, daily range): BP systolic 132–165; BP diastolic 78–88; PULSE 71–89; RESP 10–22; TEMP 36.5–36.6; O2SAT 95–99
--- NOTE | 2024-12-31 17:15 | RT.EKG_ITS ---
APPROVED REPORT Exam: Resting ECG Reason for Exam: syncope Patient Location: E HR:83 bpm ECG Measurements Heart Rate 83 AXIS NV 156 P 53 QRSd 90 QRS 46 QT 355 T 39 QTc 418 Conclusion Sinus rhythm. 83 normal axis no stemi
--- NOTE | 2024-12-31 17:45 | DI.CT_ITS ---
Exam(s) CT HEAD WO EXAM: CT HEAD WO CLINICAL HISTORY: Syncope. TECHNIQUE: Imaging Protocol: Axial computed tomography images with coronal and sagittal reformatted images were created and reviewed COMPARISON: No exams were available for comparison FINDINGS: There are no skull fractures. There is no fluid in the visualized paranasal sinuses. There is no evidence of intracranial hemorrhage, mass effect, or shift of midline structures. There are no extra-axial fluid collections. The ventricles are not enlarged or shifted and there is no blo od within the ventricular system nor within the basal cisterns. IMPRESSION: No acute intracranial findings on this noninfused CT scan of the brain. Report called by myself to ER physician 12/31/2024 at 6:44 p.m. RADIATION DOSE DELIVERED: 923.94mGy.cm Total DLP DATA REPOSITORY: All CT scans at this facility are submitted to the National Radiology Data Registry (NRDR) Dose Index Registry (DIR) with the [employer] (A[employer]). RADIATION OPTIMIZATION: All CT scans at this facility use at least one of these dose optimization te chniques: automated exposure control; mA and/or kV adjustment per patient size (includes targeted exa ms where dose is matched to clinical indication); or iterative reconstruction.
--- NOTE | 2024-12-31 17:45 | DI.RAD_ITS ---
Exam(s) XR CHEST 2V PA LATERAL EXAM: XR CHEST 2V PA LATERAL CLINICAL HISTORY: Syncope. TECHNIQUE: 2D digital imaging was performed. COMPARISON: CR,XR XR CHEST 2V PA LATERAL from 05/23/2020 FINDINGS: 2 views: Heart size is normal. The mediastinum is not widened. There are no new infiltrates. Scarring in the right middle lobe adjacent to the heart again noted an d unchanged. Blunting of the right costophrenic angle is also unchanged most probably scarring. No new left lung findings. IMPRESSION: No acute pulmonary findings.Chronic right lung base findings as described above which appear unchange d from chest x-ray of 05/23/2020 DATA REPOSITORY: RADIATION DOSE DELIVERED:
--- NOTE | 2024-12-31 17:49 | ED.GENADUL_ITS ---
Discharge Plan Disposition Patient Disposition: Home Condition: Stable Discharge Details Clinical Impression: Syncope, Acute hypokalemia Primary Care Provider: Columba Moore ED Provider: Bre Godoy Home Meds and New Rx's Prescriptions: Continued atorvastatin 20 mg tablet 20 mg PO DAILY Patient Comments: TAKE 1 TABLET BY MOUTH EVERY DAY sildenafil 100 mg tablet 100 mg PO .as needed PRN (Reason: sexual activity) amlodipine [Norvasc] 5 mg Tablet 5 mg PO DAILY lisinopril 40 mg Tablet 40 mg PO DAILY omeprazole 40 mg Capsule,Delayed Release(Dr/Ec) 40 mg PO DAILY Discharge Instructions Instructions: Hypokalemia, Fainting, Adult ED Additional Instructions: At this time head CT is within normal limits, chest x-ray also within normal limits her potassium level was slightly low at 3.1. We did give you potassium orally here today. No evidence for heart attack today. No evidence for urinary tract infection. Please increase diet with potassium rich foods. Increase oral fluids drink Gatorade or similar for the next few days. Please go from a sitting to a standing very slowly. Follow up with primary care provider in 3-5 days. Return to ED sooner if any worsening, recurrent fainting episodes or concerns. Referrals: Columba Moore [Primary Care Provider] - 3 days HPI General Mode of arrival: ambulatory . Date/Time Provider Initiated Documentation: 12/31/24 17:40 . Limitations to Documentation: no limitations . Information obtained by: patient, family, RN notes reviewed and old records reviewed . HPI Narrative: 54-year-old male presents to the ER with a chief complaint of syncopal episode which occurred prior to arrival x 2 in the last 30 minutes. Patient is here with his significant other, reports that he went to the bathroom and was sitting on the toilet and kind of slumped over. She brought him a cold rag. He walked out into the bathroom and then had a syncopal episode where he fell face first onto the floor. Patient has no complaints at this time other than feeling bloated. The significant other states that this has been ongoing for the last year. Has never been worked up per patient report. He denies any headache, chest pain shortness of breath fever chills or blurry vision. Does have a history of hypertension and high cholesterol and GERD. Related Data Home Medications ?Medication ?Instructions ?Recorded ?Confirmed amlodipine 5 mg tablet (Norvasc) 5 mg PO DAILY 05/23/20 12/31/24 lisinopril 40 mg tablet 40 mg PO DAILY 05/23/20 12/31/24 omeprazole 40 mg capsule,delayed 40 mg PO DAILY 05/23/20 12/31/24 release atorvastatin 20 mg tablet 20 mg PO DAILY 12/31/24 12/31/24 sildenafil 100 mg tablet 100 mg PO .as needed PRN sexual 12/31/24 12/31/24 activity Allergies Allergy/AdvReac Type Severity Reaction Status Date / Time No Known Allergies Allergy Verified 12/31/24 17:32 General Stated Complaint: [id number] [id number]: 3 Review of Systems All systems reviewed & are unremarkable except as noted in HPI and below Constitutional Constitutional: Reports as per HPI Cardiovascular Cardiovascular: Reports syncope Neurologic Neurologic: Reports syncope Exam Narrative Exam Narrative: Constitutional: Alert and oriented x3. Appears stated age. Normal body habitus. Head: Normocephalic, no trauma. Eyes: Pupils PERRL, Red reflex noted, EOM's intact. Eyelids symmetrical without lesions, discharge, or swelling. ENT: Bilateral TM's WNL, External ear normal to inspection, no mastoid TTP, swelling, or erythema, Nasal turbinates WNL, no nasal discharge. Normal dentition, Posterior pharynx WNL, no exudate. Chest: RRR, Normal S1, S2, distal pulses intact. Resp: Lungs clear to auscultation bilaterally, no wheezes, rales, or rhonchi. Abdomen: Soft, non-distended, Normoactive bowel sounds all 4 quads. Musculoskeletal: Normal gait, Moves all 4 extremities without difficulty. Skin: No suspicious rashes or lesions. Capillary refill less than 2 sec. Neurologic: Cranial nerves II-XII intact. Alert and oriented x 3. Motor: No deficits noted. Sensory: Intact bilaterally all 4 extremities. No facial droop, no nystagmus skoog machine operator equal bilaterally. Hematologic/Lymphatic: No ecchymosis, no lymphadenopathy. Course Vital Signs Vital signs: Vital Signs Temperature 36.6 C 12/31/24 17: Pulse 86 12/31/24 17:27 Respiratory Rate 20 12/31/24 17:27 Blood Pressure 159/79 H 12/31/24 17:27 Pulse Oximetry 98 12/31/24 17:27 Temperature 36.6 C 12/31/24 17:27 Temperature Source Oral 12/31/24 17: Pulse 86 12/31/24 17: Respiratory Rate 20 12/31/24 17: Blood Pressure 159/79 H 12/31/24 17:27 Blood Pressure Position Sitting 12/31/24 17:27 Pulse Oximetry 98 12/31/24 17:27 Oxygen Delivery Method Room Air 12/31/24 17: Oxygen Flow Rate 0 12/31/24 17: Pain Level 2 12/31/24 17:27 Medical Decision Making 54-year-old male presents to the ER with a chief complaint of syncopal episode which occurred prior to arrival x 2 in the last 30 minutes. Patient is here with his significant other, reports that he went to the bathroom and was sitting on the toilet and kind of slumped over. She brought him a cold rag. He walked out into the bathroom and then had a syncopal episode where he fell face first onto the floor. Patient has no complaints at this time other than feeling bloated. The significant other states that this has been ongoing for the last year. Has never been worked up per patient report. He denies any headache, chest pain shortness of breath fever chills or blurry vision. Does have a history of hypertension and high cholesterol and GERD. EKG was reviewed by myself and Dr. Silva ER attending, old EKG available for review. Normal sinus rhythm no evidence of STEMI. Workup ordered including CBC CMP serial troponin, lipase TSH urinalysis and head CT and chest x-ray. Differential diagnose includes not limited to CVA, CAD, hypotension, dehydration CBC shows no leukocytosis, sodium 145 potassium low at 3.1, BUN 19 creatinine 1.1 GFR 79, lipase TSH within normal limits urinalysis shows no evidence of UTI. Head CT chest x-ray within normal limits. Will give potassium 40 mill equivalents p.o. liquid. Discussed CT lab results with patient and family and encouraged follow-up with PCP to further evaluation with possible echocardiogram and stress testing if this continues or if this reoccurs to return to the ER. This text was generated using [employer] system, please disregard any oddities of phrase or misspellings. Medical Records Medical records reviewed: Yes I reviewed the patient's medical records. Lab Data Lab results reviewed: Yes I reviewed the patient's lab results. Labs: Laboratory Tests Range/Units 12/31/24 12/31/24 12/31/24 17:58 18:14 18:36 WBC Cancelled 7.83 RBC Cancelled 4.68 Hgb Cancelled 13.9 Hct Cancelled 40.3 MCV Cancelled 86 MCH Cancelled 29.7 MCHC Cancelled 34.5 RDW Cancelled 12.6 Plt Count Cancelled 219 MPV Cancelled 9.3 Immature Gran % Cancelled 0.1 Neutrophils % Cancelled 67.7 Band Neutrophils % Cancelled Lymphocytes % Cancelled 21.8 Atypical Lymphs % Cancelled Monocytes % Cancelled 8.4 Eosinophils % Cancelled 1.5 Basophils % Cancelled 0.5 Metamyelocytes % Cancelled Myelocytes % Cancelled Promyelocytes % Cancelled Other Cells % Cancelled Nucleated RBC % Cancelled 0.0 Absolute Neutrophils Cancelled 5.29 Absolute Lymphocytes Cancelled 1.71 Absolute Monocytes Cancelled 0.66 Absolute Eosinophils Cancelled 0.12 Absolute Basophils Cancelled 0.04 RBC Morphology Cancelled Polychromasia Cancelled Hypochromasia Cancelled Poikilocytosis Cancelled Basophilic Stippling Cancelled Anisocytosis Cancelled Microcytosis Cancelled Macrocytosis Cancelled Spherocytes Cancelled Tear Drop Cells Cancelled Ovalocytes Cancelled Stomatocytes Cancelled Roche-Cardwell Bodies Cancelled [place] Cells/Echinocytes Cancelled Acanthocytes (Spur) Cancelled Schistocytes Cancelled Sodium Cancelled Cancelled 145 Potassium Cancelled Cancelled 3.1 L Chloride Cancelled Cancelled 106 Carbon Dioxide Cancelled Cancelled 30.6 Anion Gap Cancelled Cancelled 8.4 BUN Cancelled Cancelled 19 H Creatinine Cancelled Cancelled 1.1 Est GFR (CKD-EPI 2020) Cancelled Cancelled 79.77 Glucose Cancelled Cancelled 79 Calcium Cancelled Cancelled 9.2 Magnesium Cancelled Cancelled 1.9 Total Bilirubin Cancelled Cancelled 0.5 AST Cancelled Cancelled 32 ALT Cancelled Cancelled 67 H Alkaline Phosphatase Cancelled Cancelled 76 Troponin I Cancelled Cancelled 41 Total Protein Cancelled Cancelled 7.1 Albumin Cancelled Cancelled 3.8 Lipase Cancelled Cancelled 37 TSH Cancelled Cancelled 1.56 Urine Color (Yellow) Urine Clarity (Clear) Urine pH (5-8) Ur Specific [place] (1.005-1.025) Urine Protein (Neg-Trace) mg/dL Urine Ketones (Negative) mg/dL Urine Blood (Negative) Urine Nitrite (Negative) Urine Bilirubin (Negative) Urine Urobilinogen (Up to 0.2) mg/dL Ur Leukocyte Esterase (Negative) Urine Glucose (Negative) mg/dL Range/Units 12/31/24 12/31/24 18:38 19:45 WBC RBC Hgb Hct MCV MCH MCHC RDW Plt Count MPV Immature Gran % Neutrophils % Band Neutrophils % Lymphocytes % Atypical Lymphs % Monocytes % Eosinophils % Basophils % Metamyelocytes % Myelocytes % Promyelocytes % Other Cells % Nucleated RBC % Absolute Neutrophils Absolute Lymphocytes Absolute Monocytes Absolute Eosinophils Absolute Basophils RBC Morphology Polychromasia Hypochromasia Poikilocytosis Basophilic Stippling Anisocytosis Microcytosis Macrocytosis Spherocytes Tear Drop Cells Ovalocytes Stomatocytes Roche-Cardwell Bodies [place] Cells/Echinocytes Acanthocytes (Spur) Schistocytes Sodium Potassium Chloride Carbon Dioxide Anion Gap BUN Creatinine Est GFR (CKD-EPI 2020) Glucose Calcium Magnesium Total Bilirubin AST ALT Alkaline Phosphatase Troponin I 43 Total Protein Albumin Lipase TSH Urine Color (Yellow) Yellow Urine Clarity (Clear) Clear Urine pH (5-8) 6.0 Ur Specific [place] (1.005-1.025) 1.020 Urine Protein (Neg-Trace) mg/dL Negative Urine Ketones (Negative) mg/dL Negative Urine Blood (Negative) Negative Urine Nitrite (Negative) Negative Urine Bilirubin (Negative) Negative Urine Urobilinogen (Up to 0.2) mg/dL 1.0 H Ur Leukocyte Esterase (Negative) Negative Urine Glucose (Negative) mg/dL Negative Quality:SDOH Health Related Social Needs: No Data to Display PFSH All Active Problems (Updated 12/31/24 @ 20:22 by Bre Godoy NP) Acute hypokalemia (Acute) Syncope (Chronic) Social History Smoking/Tobacco Use Status: Never Smoking risk assessment performed?: Yes Alcohol Intake: never Drug use: Never Substance use type: does not use Do you feel safe at home: Yes Do you feel safe in your relationship?: Yes
[2024-12-31 18:20] LABS: Abs Immature Grans 0.01 10^3/uL (0.0-0.06); Absolute Basophil Count 0.04 10^3/uL (0.0-0.2); Absolute Eosinophil Count 0.12 10^3/uL (0.0-0.7); Absolute Lymphocyte Count 1.71 10^3/uL (1.2-3.4); Absolute Monocyte Count 0.66 10^3/uL (0.1-0.8); Absolute Neutrophil Count 5.29 10^3/uL (1.2-6.7); Basophils % 0.5 %; Eosinophils % 1.5 %; HCT 40.3 % (40.0-50.0); HGB 13.9 g/dL (13.5-17.5); Immature Grans % 0.1 %; Lymphocytes % 21.8 %; MCH 29.7 pg (27.0-33.0); MCHC 34.5 % (32.0-36.0); MCV 86 fL (80-95); MPV 9.3 fL (8.0-11.0); Monocytes % 8.4 %; Neutrophils % 67.7 %; Platelet Count 219 10^3/uL (130-400); RBC 4.68 10^6/uL (4.36-5.78); RDW 12.6 % (11.8-14.1); RDW-SD 39.3 fL; WBC 7.83 10^3/uL (4.4-10.8)
[2024-12-31 19:08] LABS: Troponin I 41 ng/L (<or=76)
[2024-12-31 19:21] LABS: Bilirubin Negative (Negative); Blood Negative (Negative); Clarity Clear (Clear); Glucose Negative (Negative); Ketones Negative (Negative); Leukocyte Esterase Negative (Negative); Nitrite Negative (Negative)
[2024-12-31 19:56] LABS: ALT 67 U/L (16-63); AST 32 U/L (15-37); Albumin 3.8 g/dL (3.4-5.0); Alkaline Phosphatase 76 U/L (46-116); Anion Gap 8.4 mmol/L (3-11); BUN 19 mg/dL (7-18); Bilirubin, Total 0.5 mg/dL (0.2-1.0); CO2 30.6 mmol/L (21.0-32.0); CREATININE 1.1 mg/dL (0.70-1.30); Calcium 9.2 mg/dL (8.5-10.1); Chloride 106 mmol/L (98-107); Estimated GFR 79.77 (mL/min/1.73m2); Glucose 79 mg/dL (74-106); Lipase 37 U/L (<78); Magnesium 1.9 mg/dL (1.8-2.4); Potassium 3.1 mmol/L (3.5-5.1); Sodium 145 mmol/L (136-145); TSH 1.56 uIU/mL (0.36-3.74); Total Protein 7.1 g/dL (6.4-8.2)
[2024-12-31 20:17] LABS: Troponin I 43 ng/L (<or=76)
[2024-12-31] MEDS: Potassium Chloride Liquid 20 MEQ PKT 40 MEQ PO (20:54)
== END 2024-12-31 21:21 | disposition home or self-care (01) ==
PROVIDERS: Emergency Provider Registered Nurse Emergency; PCP Internal Medicine
DX: R55 Syncope and collapse (principal); E87.6 Hypokalemia
CPT/HCPCS: 99285 ×2; 36415; 36416; 82962; 80053; 83690; 93005; 70450; 71046; 81003; 83735; 84443; 84484; 85025; 93010

== ENCOUNTER 2025-01-15 08:55 | Outpatient (REF) | payer BC, SELFPAY ==
[2025-01-15 16:16] LABS: Anion Gap 4.3 mmol/L (3-11); BUN 27 mg/dL (7-18); CO2 28.7 mmol/L (21.0-32.0); Calcium 9.2 mg/dL (8.5-10.1); Chloride 105 mmol/L (98-107); Estimated GFR 89.44 (mL/min/1.73m2); Glucose 123 mg/dL (74-106); Potassium 4.4 mmol/L (3.5-5.1); Sodium 138 mmol/L (136-145)
== END 2025-01-15 08:56 | disposition home or self-care (01) ==
LOC: NCHCN 08:55
PROVIDERS: PCP Internal Medicine; Visit Provider Internal Medicine
DX: E87.6 Hypokalemia (principal)
CPT/HCPCS: 80048

== ENCOUNTER 2025-01-15 09:03 | Outpatient (CLI) | payer BC, SELFPAY | END 2025-01-15 09:04 | disposition home or self-care (01) | PROVIDERS: PCP Internal Medicine; Visit Provider Internal Medicine | DX: R55 Syncope and collapse (principal) | CPT/HCPCS: 93246 ==

== ENCOUNTER 2025-06-17 16:05 | Outpatient (REF) | payer BC, SELFPAY ==
[2025-06-17 16:12] LABS: HCT 41.7 % (40.0-50.0); HGB 13.7 g/dL (13.5-17.5); MCH 29.3 pg (27.0-33.0); MCHC 32.9 % (32.0-36.0); MCV 89 fL (80-95); MPV 9.9 fL (8.0-11.0); Platelet Count 247 10^3/uL (130-400); RBC 4.67 10^6/uL (4.36-5.78); RDW 12.7 % (11.8-14.1); RDW-SD 41.3 fL; WBC 7.19 10^3/uL (4.4-10.8)
[2025-06-17 16:20] LABS: ALT 62 U/L (16-63); AST 32 U/L (15-37); Albumin 3.7 g/dL (3.4-5.0); Alkaline Phosphatase 88 U/L (46-116); Anion Gap 5.9 mmol/L (3-11); BUN 24 mg/dL (7-18); Bilirubin, Total 0.3 mg/dL (0.2-1.0); CO2 30.1 mmol/L (21.0-32.0); Calcium 8.9 mg/dL (8.5-10.1); Calculated LDL 104 mg/dL (<100); Chloride 102 mmol/L (98-107); Cholesterol 170 mg/dL (<200); Estimated GFR 100.86 (mL/min/1.73m2); Glucose 113 mg/dL (74-106); HDL Cholesterol 55 mg/dL (>or=40); Potassium 4.5 mmol/L (3.5-5.1); Sodium 138 mmol/L (136-145); Total Protein 7.2 g/dL (6.4-8.2); Triglyceride 57 mg/dL (<150)
[2025-06-17 16:38] LABS: Hemoglobin A1C 5.6 % (<5.7)
[2025-06-18 17:53] LABS: PSA, Screening 0.8 ng/mL (<=3.5)
== END 2025-06-17 16:06 | disposition home or self-care (01) ==
LOC: NCHCN 16:05
PROVIDERS: PCP Internal Medicine; Visit Provider Internal Medicine
DX: E78.5 Hyperlipidemia, unspecified (principal); I10 Essential (primary) hypertension; R73.03 Prediabetes; Z12.5 Encounter for screening for malignant neoplasm of prostate
CPT/HCPCS: 80053; 80061; 84153; 85027; 83036

== ENCOUNTER 2025-08-26 16:47 | Outpatient (REF) | payer BC, SELFPAY | END 2025-08-26 16:48 | disposition home or self-care (01) | LOC: NCHCN 16:47 | PROVIDERS: PCP Internal Medicine; Visit Provider Internal Medicine | DX: I10 Essential (primary) hypertension (principal) | CPT/HCPCS: 82043; 82570 ==